=== PATIENT | male | born 1965 | race Caucasian/White ===

== ENCOUNTER → 2019-12-07 07:52 | Outpatient (REF) | payer BC, SELFPAY | LOC: ANHLAB 07:52 | PROVIDERS: Visit Provider Nurse Practitioner | DX: C44.320 Squamous cell carcinoma of skin of unspecified parts of face (principal); C44.619 Basal cell carcinoma of skin of left upper limb, including shoulder | CPT/HCPCS: 88305; 88331; 88332 ==

== ENCOUNTER → 2021-11-20 07:20 | Outpatient (REF) | payer BC, SELFPAY | LOC: ANHLAB 07:20 | PROVIDERS: Visit Provider Nurse Practitioner | DX: C44.619 Basal cell carcinoma of skin of left upper limb, including shoulder (principal) | CPT/HCPCS: 88305; 88331 ==

== ENCOUNTER 2023-04-08 08:00 | Outpatient (NON) | payer BC, SELFPAY | END 2023-04-08 08:01 | disposition home or self-care (01) | PROVIDERS: Visit Provider Nurse Practitioner | DX: C43.62 Malignant melanoma of left upper limb, including shoulder (principal) | CPT/HCPCS: 88305 ==